=== PATIENT | male | born 1935 | race Caucasian/White ===

== ENCOUNTER → 2016-05-15 | Outpatient (CLI) | payer MEDICARE, OTHER ==
[~2016-05-15] MED LIST: ARICEPT10 MG PO; CARDURA2 MG PO; CIPRO 500MG TA500 MG PO; DIGITEK0.125 MG PO; DILTIAZEM120 MG PO; MEDI-FIRST ASP325 MG PO; MELATONIN3 M1 PO; NITRO-DUR0.2 MG/HR TD; OS-CAL 500500 MG PO; POTASSIUM CL 220 MEQ PO; PRILOSEC 20MG20 MG PO; REMERON30 MG PO; TYLENOL EXTRA500 M1 PO
== END ==
LOC: LAB 15:53
DX: N39.0 Urinary tract infection, site not specified (principal); R41.0 Disorientation, unspecified

== ENCOUNTER → 2016-05-21 | Outpatient (CLI) | payer MEDICARE, OTHER | LOC: LAB 15:19 | DX: Z09 Encounter for follow-up examination after completed treatment for conditions other than malignant neoplasm (principal); N39.0 Urinary tract infection, site not specified ==

== ENCOUNTER → 2016-06-24 | Outpatient (CLI) | payer MEDICARE, OTHER ==
[2011-04-03 09:03] VITALS: BP 165/90
== END ==
LOC: LAB 05:35
DX: E11.8 Type 2 diabetes mellitus with unspecified complications (principal)

== ENCOUNTER → 2016-11-04 | Outpatient (CLI) | payer MEDICARE, OTHER ==
[2011-04-03 09:03] VITALS: BP 165/90
== END ==
LOC: LAB 10:40
DX: R31.9 Hematuria, unspecified (principal)

== ENCOUNTER → 2016-11-07 | Outpatient (CLI) | payer MEDICARE, OTHER ==
[2011-04-03 09:03] VITALS: BP 165/90
== END ==
LOC: LAB 08:34
DX: K92.1 Melena (principal)

== ENCOUNTER → 2016-11-08 | Outpatient (CLI) | payer MEDICARE, OTHER ==
[2011-04-03 09:03] VITALS: BP 165/90
== END ==
LOC: LAB 11:36
DX: K92.1 Melena (principal)

== ENCOUNTER → 2016-11-10 | Outpatient (CLI) | payer MEDICARE, OTHER ==
[2011-04-03 09:03] VITALS: BP 165/90
== END ==
LOC: LAB 04:30
DX: K92.1 Melena (principal)

== ENCOUNTER → 2016-12-08 | Outpatient (CLI) | payer MEDICARE, OTHER ==
[2011-04-03 09:03] VITALS: BP 165/90
== END ==
LOC: LAB 05:55
DX: E11.8 Type 2 diabetes mellitus with unspecified complications (principal)

== ENCOUNTER → 2017-01-12 | Outpatient (CLI) | payer MEDICARE, OTHER ==
[2011-04-03 09:03] VITALS: BP 165/90
[2017-01-12 07:18] LABS: ALBUMIN 3.1 g/dL (3.5-5.0); BUN/CREATININE RATIO 20.6 (6.0-26.0); CALCIUM 8.7 mg/dL (8.4-10.2); POTASSIUM 4.5 mmol/L (3.6-5.0); TOTAL BILIRUBIN 0.6 mg/dL (0.2-1.3); TOTAL PROTEIN 6.7 g/dL (6.3-8.2)
[2017-01-12 07:30] LABS: EOS # 0.3 (0.04-0.40); EOS % 4.4 % (0.0-4.0); HEMATOCRIT 41.4 % (42.0-52.0); LYMPH# 0.8 (1.50-4.00); MEAN CELL VOLUME 91 fl (78-100); MEAN CORPUSCULAR HEMOGLOBIN 29 pg (27-31); MEAN CORPUSCULAR HGB CONC 31 g/dL (33-37); MEAN PLATELET VOLUME 9.8 fl (7.4-10.4); MONO # 0.4 (0.20-0.80); NEU # 4.9 (1.40-6.50); PLATELET COUNT 235 K/mm3 (130-400); RED BLOOD COUNT 4.53 M/mm3 (4.20-5.60); RED CELL DISTRIBUTION WIDTH 14.9 % (11.5-14.5); WHITE BLOOD COUNT 6.4 K/mm3 (4.8-10.8)
[2017-01-12 07:54] LABS: URINE APPEARANCE CLEAR; URINE BILIRUBIN NEGATIVE (NEGATIVE); URINE BLOOD 50 ery/uL (NEGATIVE); URINE COLOR YELLOW; URINE GLUCOSE 50 mg/dL mg/dL (NEGATIVE); URINE KETONE NEGATIVE (NEGATIVE); URINE NITRATE NEGATIVE (NEGATIVE); URINE PROTEIN(semi-quant) 1+ mg/dL (NEGATIVE); URINE UROBILINOGEN NORMAL (NORMAL)
[2017-01-12 07:55] LABS: URINE LEUKOCYTE ESTERASE 1+ (NEGATIVE); URINE MUCUS PRESENT (NOT PRESENT)
== END ==
LOC: LAB 06:23
PROVIDERS: Family Medicine
DX: M62.81 Muscle weakness (generalized) (principal); I10 Essential (primary) hypertension; R31.9 Hematuria, unspecified; R35.8 Other polyuria; R53.83 Other fatigue; R41.0 Disorientation, unspecified; R73.9 Hyperglycemia, unspecified